=== PATIENT | female | born 1975 | race Caucasian/White ===

== ENCOUNTER 2019-09-05 21:39 | Emergency (ER) | payer BC ==
[2019-09-05] MEDS ORDERED: Diphtheria,Pertussis(Acell),Tetanus Vaccine 0.5 ML Syringe IM ONE (21:55)
--- NOTE | 2019-09-06 06:44 | EDM.PDOC ---
ED HPI GENERAL MEDICAL PROBLEM - General Chief Complaint: Lower Extremity Injury/Pain Stated Complaint: glass in foot Time Seen by Provider: 09/05/19 21:45 Source of Information: Reports: Patient History Limitations: Reports: No Limitations - History of Present Illness INITIAL COMMENTS - FREE TEXT/NARRATIVE: Pt. states that she stepped on broken glass at home and states that there is still glass retained in her heel. She has been unable to remove it. Denies injury elsewhere. Tetanus is not up to date. Onset Date: 09/05/19 Location: Reports: Lower Extremity, Right Right heel Pain Score (Numeric/FACES): 2 - Related Data Allergies Allergy/AdvReac Type Severity Reaction Status Date / Time No Known Allergies Allergy Verified 09/05/19 21:55 Past Medical History - Past Health History Medical/Surgical History: Denies Medical/Surgical History Review of Systems - Review of Systems Review Of Systems: Comprehensive ROS is negative, except as noted in HPI. ED EXAM, GENERAL - Physical Exam Exam: See Below Exam Limited By: No Limitations General Appearance: Alert, WD/WN, No Apparent Distress Extremities: Other (small puncture/lac to R heel) ED TRAUMA EXTREMITY PROCEDURES - Foreign Body Removal Indication:: glass in heel confirmed with x-ray Consent Obtained: Patient Performing Doctor:: Jerry Lorenzo Foreign Body Other Location Comment:: R posterior heel Anesthesia Type: Local Anesthesia Other:: 2 ml 1% lidocaine Complications:: No Course - Vital Signs Last Recorded V/S: Last Vital Signs Temp 37.4 C 09/05/19 21:40 Pulse 95 09/05/19 22:40 Resp 14 09/05/19 22:40 BP 153/100 H 09/05/19 22:40 Pulse Ox - Orders/Labs/Meds Orders: Active Orders 24 hr Category Date Time Status Vaccines to be Administered [RC] PER UNIT ROUTINE Care 09/05/19 21:55 Active Calcaneous Rt [CR] Stat Exams 09/05/19 21:56 Taken Meds: Medications Discontinued Medications Generic Name Dose Route Start Last Admin Trade Name Freq PRN Reason Stop Dose Admin Diphtheria/Tetanus/Acell Pertussis 0.5 ml 09/05/19 21:55 09/05/19 22:37 Adacel IM 09/05/19 21:56 0.5 ml .ONCE ONE Administration Lidocaine HCl 5 ml 09/05/19 22:23 09/05/19 22:33 Xylocaine-Mpf 1% INJECT 09/05/19 22:24 2 ml ONETIME ONE Administration Departure - Departure Time of Disposition: 22:50 Disposition: Home, Self-Care 01 Clinical Impression: Foreign body (FB) in soft tissue - Discharge Information Instructions: Hand or Foot Foreign Body, Adult Additional Instructions: Keep dry for 24 hours. Keep covered if wearing shoes for the next couple of days, otherwise keep open to air as much as possible. Return if redness, swelling, or discharge from the area. Sepsis Event Note (ED) - Evaluation Sepsis Screening Result: No Definite Risk - Focused Exam Vital Signs: Vital Signs Temp Pulse Resp BP 09/05/19 22:40 95 14 153/100 H 09/05/19 21:40 37.4 C 105 H 16 165/99 H - My Orders Last 24 Hours: My Active Orders 09/05/19 21:55 Vaccines to be Administered [RC] PER UNIT ROUTINE 09/05/19 21:56 Calcaneous Rt [CR] Stat - Assessment/Plan Last 24 Hours: My Active Orders 09/05/19 21:55 Vaccines to be Administered [RC] PER UNIT ROUTINE 09/05/19 21:56 Calcaneous Rt [CR] Stat
--- NOTE | 2019-09-06 07:51 | CR ---
[id number] RAD/RAD Heel Oscalsis Right Exam: RAD Heel Oscalsis Right Indication:POSSIBLE FOREIGN BODY IN SOFT TISSUE OF HEEL. Comparison: No prior imaging for comparison. Discussion: 1-2 mm hyperdense radiopaque foreign body in the subcutaneous soft tissues along the plantar aspect of the hindfoot. This is lateral of midline seen on both views. No acute fracture or osseous lesion. Small os trigonum. Impression: As above. Timbo Carrasco MD 09/06/19 0750 Thank you for allowing us to participate in the care of your patient.
== END 2019-09-05 22:50 | disposition home or self-care (01) ==
LOC: VM.ED 21:39
DX: S91.341A Puncture wound with foreign body, right foot, initial encounter (principal); Z23 Encounter for immunization; W25.XXXA Contact with sharp glass, initial encounter
CPT/HCPCS: 28190; 73650-RT; 90471; 90715; 99283-25; J2001

== ENCOUNTER 2021-05-13 14:16 | Emergency (ER) | payer BC ==
[2021-05-13 15:05] LABS: CHLORIDE,CL 97 mmol/L (98-107); SODIUM,NA 131 mmol/L (136-145)
[2021-05-13 15:06] LABS: ANION GAP 9.9 mmol/L (5-15)
== END 2021-05-13 15:55 | disposition home or self-care (01) ==
LOC: VM.ED 14:16
DX: M94.0 Chondrocostal junction syndrome [Tietze] (principal); I10 Essential (primary) hypertension
CPT/HCPCS: 36415; 71046; 80053; 84484; 85025; 85379; 93005; 99284; 99285-25

== ENCOUNTER 2021-09-20 10:53 | Emergency (ER) | payer BC ==
[2021-09-20] MEDS ORDERED: Diphtheria,Pertussis(Acell),Tetanus Vaccine 0.5 ML Syringe IM ONE (11:15)
[2021-09-20] MEDS ORDERED: Diphtheria,Pertussis(Acell),Tetanus Vaccine 0.5 ML Syringe ONE (11:30)
[2021-09-20 11:42] LABS: CHLORIDE,CL 82 mmol/L (98-107)
[2021-09-20 11:43] LABS: ANION GAP 17.6 mmol/L (5-15); ESTIMATED GFR 71 mL/min (>=60); SODIUM,NA 122 mmol/L (136-145)
[2021-09-20] MEDS ORDERED: Sodium Chloride 0.9% 10 ML Syringe FLUSH PRN (11:51)
[2021-09-20] MEDS ORDERED: Magnesium Sulfate/Water 4 GM in Premix Bag 1 BAG IV ONE (11:53)
[2021-09-20] MEDS ORDERED: Sodium Chloride 0.9% 500 ML IV ONE ×2 (11:58)
[2021-09-20] MEDS ORDERED: Cephalexin 500 MG Cap PO ONE (11:59)
[2021-09-20] MEDS ORDERED: Sodium Chloride 0.9% 1,000 ML IV SCH ×2 (12:00→13:00)
[2021-09-20] MEDS ORDERED: Sodium Chloride 0.9% 1,000 ML IV ONE (12:47)
== END 2021-09-20 15:10 | disposition home or self-care (01) ==
LOC: VM.ED 10:53
DX: L03.116 Cellulitis of left lower limb (principal); E87.1 Hypo-osmolality and hyponatremia; E83.42 Hypomagnesemia; F17.210 Nicotine dependence, cigarettes, uncomplicated; I10 Essential (primary) hypertension; Z79.899 Other long term (current) drug therapy; Z91.030 Bee allergy status
CPT/HCPCS: 36415; 80053; 83735; 85025; 90471; 90715; 96361; 96365; 99283; A9270; J3475; J7030

== ENCOUNTER 2023-08-09 11:31 | Emergency (ER) | payer BC ==
[2023-08-09 11:51] LABS: BASOPHILS PERCENT AUTO 0.3 % (0.2-1.2); EOSINOPHILS PERCENT AUTO 0.6 % (0.0-4.0); HEMATOCRIT 40.5 % (33.0-47.0); HEMOGLOBIN 14.1 g/dL (12.0-16.0); IMMATURE GRAN ABSOLUTE AUTO 0.02 x10^3/uL (0.00-0.07); LYMPHOCYTES ABSOLUTE AUTO 2.2 x10^3/uL (1.0-4.8); LYMPHOCYTES PERCENT AUTO 30.4 % (25.0-50.0); MEAN CORPUSCULAR HEMOGLOBIN 31.8 pg (26.0-32.0); MEAN CORPUSCULAR HGB CONC 34.8 g/dL (32.0-36.0); MEAN CORPUSCULAR VOLUME 91.4 fL (78.0-93.0); MONOCYTES ABSOLUTE AUTO 0.5 x10^3/uL (0.0-0.8); MONOCYTES PERCENT AUTO 6.6 % (2.0-11.0); NEUTROPHILS ABSOLUTE AUTO 4.4 x10^3/uL (1.8-7.7); NEUTROPHILS PERCENT AUTO 61.8 % (50.0-80.0); PLATELET COUNT,PLT 250 x10^3/uL (130-400); RED BLOOD CELL COUNT 4.43 x10^6/uL (4.00-5.50); WHITE BLOOD CELL COUNT,WBC 7.1 x10^3/uL (4.0-10.0)
[2023-08-09 12:01] LABS: BLOOD UREA NITROGEN,BUN 8 mg/dL (7-18); CALCIUM 9.4 mg/dL (8.5-10.1); CARBON DIOXIDE,CO2 28 mmol/L (21-32); CHLORIDE,CL 95 mmol/L (98-107); CREATININE 0.9 mg/dL (0.55-1.02); GLUCOSE RANDOM 146 mg/dL (70-99); POTASSIUM,K 3.8 mmol/L (3.5-5.1); SODIUM,NA 136 mmol/L (136-145)
[2023-08-09 12:04] LABS: ANION GAP 16.8 mmol/L (5-15); ESTIMATED GFR 79 mL/min (>=60)
[2023-08-09] MEDS: LORazepam 1 MG Tab PO ONE (12:06)
[2023-08-09] MEDS: Metoprolol Tartrate 5 MG/5 ML SDV IVPUSH ONE (12:09)
== END 2023-08-09 13:20 | disposition home or self-care (01) ==
LOC: VM.ED 11:31
DX: I16.0 Hypertensive urgency (principal); I10 Essential (primary) hypertension; Z91.030 Bee allergy status; Z79.899 Other long term (current) drug therapy; Z90.710 Acquired absence of both cervix and uterus
CPT/HCPCS: 36415; 71045; 80048; 84484; 85025; 93010; 96374; 99284; 99284-25; A9270-GY; J3490

== ENCOUNTER 2023-08-10 08:25 | Emergency (ER) | payer BC ==
[2023-08-10] MEDS ORDERED: Sodium Chloride 0.9% 10 ML Syringe FLUSH PRN (08:41)
[2023-08-10 08:52] LABS: BASOPHILS PERCENT AUTO 0.2 % (0.2-1.2); EOSINOPHILS PERCENT AUTO 0.7 % (0.0-4.0); HEMATOCRIT 42.1 % (33.0-47.0); HEMOGLOBIN 14.5 g/dL (12.0-16.0); IMMATURE GRAN ABSOLUTE AUTO 0.02 x10^3/uL (0.00-0.07); LYMPHOCYTES ABSOLUTE AUTO 2.2 x10^3/uL (1.0-4.8); LYMPHOCYTES PERCENT AUTO 38.9 % (25.0-50.0); MEAN CORPUSCULAR HEMOGLOBIN 31.6 pg (26.0-32.0); MEAN CORPUSCULAR HGB CONC 34.4 g/dL (32.0-36.0); MEAN CORPUSCULAR VOLUME 91.7 fL (78.0-93.0); MONOCYTES ABSOLUTE AUTO 0.4 x10^3/uL (0.0-0.8); MONOCYTES PERCENT AUTO 7.4 % (2.0-11.0); NEUTROPHILS ABSOLUTE AUTO 2.9 x10^3/uL (1.8-7.7); NEUTROPHILS PERCENT AUTO 52.4 % (50.0-80.0); PLATELET COUNT,PLT 249 x10^3/uL (130-400); RED BLOOD CELL COUNT 4.59 x10^6/uL (4.00-5.50); WHITE BLOOD CELL COUNT,WBC 5.6 x10^3/uL (4.0-10.0)
[2023-08-10] MEDS: LORazepam 1 MG Tab PO ONE (08:54)
[2023-08-10] MEDS: Labetalol 20 MG/4 ML Syringe IVPUSH ONE ×2 (08:55→09:39)
[2023-08-10 09:24] LABS: A/G RATIO 1.13; ALANINE AMINOTRANSFERASE,ALT 32 U/L (14-59); ALBUMIN 4.4 g/dL (3.4-5.0); ALKALINE PHOSPHATASE 86 U/L (46-116); ASPARTATE AMNIOTRANSFERASE,AST 29 U/L (15-37); BILIRUBIN TOTAL 0.4 mg/dL (0.2-1.0); BLOOD UREA NITROGEN,BUN 9 mg/dL (7-18); CALCIUM 9.9 mg/dL (8.5-10.1); CARBON DIOXIDE,CO2 25 mmol/L (21-32); CREATININE 0.9 mg/dL (0.55-1.02); GLUCOSE RANDOM 92 mg/dL (70-99); PROTEIN TOTAL,TP 8.3 g/dL (6.4-8.2); TSH ULTRASENSITIVE 2.789 uIU/mL (0.358-3.74)
[2023-08-10 09:27] LABS: CHLORIDE,CL 93 mmol/L (98-107); SODIUM,NA 132 mmol/L (136-145)
[2023-08-10 09:29] LABS: ESTIMATED GFR 79 mL/min (>=60)
[2023-08-10] MEDS: cloNIDine 0.1 MG Tab PO ONE (09:40)
[2023-08-10] MEDS: Nitroglycerin/D5W 25 MG/250 ML BOTTLE IV SCH (09:40)
[2023-08-10 11:00] LABS: APPEARANCE,URINE CLEAR (CLEAR); BILIRUBIN,URINE NEGATIVE (NEGATIVE); COLOR,URINE YELLOW (YELLOW); GLUCOSE,URINE NEGATIVE (NEGATIVE); KETONES,URINE NEGATIVE (NEGATIVE); LEUKOCYTE ESTERASE,URINE NEGATIVE (NEGATIVE); NITRITE,URINE NEGATIVE (NEGATIVE); OCCULT BLOOD,URINE NEGATIVE (NEGATIVE); PROTEIN,URINE NEGATIVE (NEGATIVE); UROBILINOGEN,URINE 0.2 EU/dL (0.2)
[2023-08-10 11:04] LABS: AMPHETAMINES SCREEN, URINE NEGATIVE (NEGATIVE); BARBITURATE SCREEN,URINE NEGATIVE (NEGATIVE)
[2023-08-10 11:05] LABS: BENZODIAZEPINES SCREEN,URINE NEGATIVE (NEGATIVE); BUPRENORPHINE SCREEN,URINE NEGATIVE (NEGATIVE); COCAINE METABOLITES,URINE NEGATIVE (NEGATIVE); METHADONE SCREEN, URINE NEGATIVE (NEGATIVE); METHAMPHETAMINE SCREEN, URINE NEGATIVE (NEGATIVE); OXYCODONE SCREEN,URINE NEGATIVE (NEGATIVE); PCP SCREEN,URINE NEGATIVE (NEGATIVE); THC SCREEN,URINE 50 NG/ML NEGATIVE (NEGATIVE)
== END 2023-08-10 11:25 | disposition short-term general hospital (02) ==
LOC: VM.ED 08:25
DX: I16.1 Hypertensive emergency (principal); I21.4 Non-ST elevation (NSTEMI) myocardial infarction; I10 Essential (primary) hypertension; Z91.030 Bee allergy status; Z79.899 Other long term (current) drug therapy
CPT/HCPCS: 36415; 70450; 80053; 80305-QW; 81003; 81025; 83880; 84443; 84484; 85025; 93005; 93010; 96365; 96366; 96375; 96376; 99284; 99285-25; A9270-GY; J1920; J2305

== ENCOUNTER 2023-09-10 18:10 | Emergency (ER) | payer BC ==
[2023-09-10] MEDS ORDERED: Sodium Chloride 0.9% 10 ML Syringe FLUSH PRN (18:36)
[2023-09-10 18:42] LABS: BASOPHILS PERCENT AUTO 0.3 % (0.2-1.2); EOSINOPHILS ABSOLUTE AUTO 0.1 x10^3/uL (0.0-0.5); EOSINOPHILS PERCENT AUTO 1.5 % (0.0-4.0); HEMATOCRIT 33.6 % (33.0-47.0); HEMOGLOBIN 11.8 g/dL (12.0-16.0); IMMATURE GRAN ABSOLUTE AUTO 0.01 x10^3/uL (0.00-0.07); LYMPHOCYTES PERCENT AUTO 44.9 % (25.0-50.0); MEAN CORPUSCULAR HEMOGLOBIN 31.1 pg (26.0-32.0); MEAN CORPUSCULAR HGB CONC 35.1 g/dL (32.0-36.0); MEAN CORPUSCULAR VOLUME 88.7 fL (78.0-93.0); MONOCYTES ABSOLUTE AUTO 0.6 x10^3/uL (0.0-0.8); MONOCYTES PERCENT AUTO 6.3 % (2.0-11.0); NEUTROPHILS ABSOLUTE AUTO 4.2 x10^3/uL (1.8-7.7); NEUTROPHILS PERCENT AUTO 46.9 % (50.0-80.0); PLATELET COUNT,PLT 249 x10^3/uL (130-400); RED BLOOD CELL COUNT 3.79 x10^6/uL (4.00-5.50); WHITE BLOOD CELL COUNT,WBC 8.9 x10^3/uL (4.0-10.0)
[2023-09-10 18:54] LABS: PROTHROMBIN TIME 9.8 SEC (8.9-11.5); PTT,PARTIAL THROMBOPLSTIN TIME 26.1 SEC (21.9-33.8)
[2023-09-10 18:59] LABS: A/G RATIO 1.06; ALBUMIN 3.7 g/dL (3.4-5.0); ANION GAP 12.4 mmol/L (5-15); BILIRUBIN TOTAL 0.2 mg/dL (0.2-1.0); CALCIUM 9.4 mg/dL (8.5-10.1); EST CRCL DRUG DOSING (CG) 75.21 mL/min; MAGNESIUM 1.7 mg/dL (1.8-2.4); POTASSIUM,K 4.4 mmol/L (3.5-5.1); PROTEIN TOTAL,TP 7.2 g/dL (6.4-8.2)
[2023-09-10] MEDS: LORazepam 1 MG Tab PO ONE (19:05)
== END 2023-09-10 19:58 | disposition home or self-care (01) ==
LOC: VM.ED 18:10
DX: I10 Essential (primary) hypertension (principal); F41.9 Anxiety disorder, unspecified; Z90.710 Acquired absence of both cervix and uterus; Z79.899 Other long term (current) drug therapy; Z79.2 Long term (current) use of antibiotics; Z91.030 Bee allergy status
CPT/HCPCS: 80053; 83735; 84484; 85025; 85610; 85730; 93005; 99285; A9270

== ENCOUNTER 2023-10-12 17:41 | Emergency (ER) | payer BC ==
[2023-10-12] MEDS: Aspirin 81 MG Tab.Chew PO ONE (17:49)
[2023-10-12 18:28] LABS: BASOPHILS PERCENT AUTO 0.1 % (0.2-1.2); EOSINOPHILS PERCENT AUTO 0.1 % (0.0-4.0); HEMATOCRIT 34.3 % (33.0-47.0); IMMATURE GRAN ABSOLUTE AUTO 0.02 x10^3/uL (0.00-0.07); LYMPHOCYTES ABSOLUTE AUTO 3.2 x10^3/uL (1.0-4.8); LYMPHOCYTES PERCENT AUTO 22.7 % (25.0-50.0); MEAN CORPUSCULAR VOLUME 88.6 fL (78.0-93.0); MONOCYTES ABSOLUTE AUTO 0.5 x10^3/uL (0.0-0.8); MONOCYTES PERCENT AUTO 3.6 % (2.0-11.0); NEUTROPHILS ABSOLUTE AUTO 10.5 x10^3/uL (1.8-7.7); NEUTROPHILS PERCENT AUTO 73.4 % (50.0-80.0); PLATELET COUNT,PLT 320 x10^3/uL (130-400); RED BLOOD CELL COUNT 3.87 x10^6/uL (4.00-5.50); WHITE BLOOD CELL COUNT,WBC 14.2 x10^3/uL (4.0-10.0)
[2023-10-12 18:46] LABS: ANION GAP 12.8 mmol/L (5-15); BLOOD UREA NITROGEN,BUN 13 mg/dL (7-18); CALCIUM 8.9 mg/dL (8.5-10.1); CARBON DIOXIDE,CO2 27 mmol/L (21-32); CHLORIDE,CL 89 mmol/L (98-107); EST CRCL DRUG DOSING (CG) 75.21 mL/min; ESTIMATED GFR 70 mL/min (>=60); GLUCOSE RANDOM 108 mg/dL (70-99); POTASSIUM,K 4.8 mmol/L (3.5-5.1)
[2023-10-12 18:47] LABS: SODIUM,NA 124 mmol/L (136-145)
[2023-10-12] MEDS: Sodium Chloride 1 GM Tab PO ONE ×3 (19:46→20:27)
[2023-10-14 05:06] LABS: URINE SODIUM 21 mEq/L
== END 2023-10-12 20:35 | disposition home or self-care (01) ==
LOC: VM.ED 17:41
DX: R07.9 Chest pain, unspecified (principal); E87.1 Hypo-osmolality and hyponatremia; F17.210 Nicotine dependence, cigarettes, uncomplicated; I10 Essential (primary) hypertension; Z79.82 Long term (current) use of aspirin; Z79.899 Other long term (current) drug therapy; Z91.030 Bee allergy status
CPT/HCPCS: 36415; 71046; 80048; 83935; 84300; 84484; 85025; 93005; 93010; 99284; 99285; A9270-GY